=== PATIENT | male | born 1965 | race Caucasian/White ===

== ENCOUNTER 2025-03-12 15:43 | Emergency (ER) | payer MEDICARE, SELFPAY ==
[2025-03-12 15:54] VITALS: BP 165/92; PULSE 76; RESP 20; TEMP 37.1; O2SAT 98; BMI 23.3
--- NOTE | 2025-03-12 16:02 | EDNOTE_ITS ---
ED Skin Abcess FB-RME/HPI General Chief complaint: Skin/Abscess/Foreign Body Stated complaint: SKIN PROBLEMS Time Seen by Provider: 03/12/25 15:48 Arrival date/time: 03/12/25 15:43 59-year-old male with history of HIV and methamphetamine abuse presents to the emerged from today for complaints of multiple skin sores different levels of healing patient has had these for quite some time he reports but he has some new ones as well. Patient believes it is from doing work outside patient reports the sores are itchy. Limitations: no limitations Related Data Previous Rx's ?Medication ?Instructions ?Recorded doxycycline hyclate 100 mg capsule 100 mg PO BID 7 day s #14 caps 03/12/25 ibuprofen 800 mg tablet 800 mg PO TID PRN pain #30 t abs 03/12/25 mupirocin 2 % topical ointment 1 applic topical TID 10 days #22 03/12/25 grams Allergies Allergy/AdvReac Type Severity Reaction Status Date / Time No Known Allergies Allergy Verified 03/12/25 15:46 Review of Systems Review of Systems Systems Reviewed: All systems reviewed, normal except as documented Constitutional Constitutional: Reports system reviewed and no additional complaints, except as documented, Denies fever(s) and Denies headache(s) Eyes Eyes: Reports system reviewed and no additional complaints, except as documented and Denies blurry vision ENT Ears, Nose, Mouth, and Throat: Reports system reviewed and no additional complaints, except as documented, Denies headache(s), Denies nasal congestion and Denies nasal discharge Cardiovascular Cardiovascular: Reports system reviewed and no additional complaints, except as documented, Denies chest pain and Denies dyspnea Respiratory Respiratory: Reports system reviewed and no additional complaints, except as documented, Denies chest congestion, Denies cough and Denies dyspnea Gastrointestinal Gastrointestinal: Reports system reviewed and no additional complaints, except as documented and Denies abdominal pain Integumentary/Breasts Skin/Breast: Reports system reviewed and no additional complaints, except as documented, Reports pruritus and Reports rash (Skin sores) Neurologic Neurologic: Reports system reviewed and no additional complaints, except as documented, Reports as per HPI and Denies headache(s) Past Medical History Social History SMOKING STATUS: Current every day smoker ED Exam General Limitations: Present no limitations General appearance: Present alert and in no apparent distress Head Head exam: Present atraumatic Eye Eye exam: Present normal appearance, PERRL and EOMI ENT ENT exam: Present normal exam, normal oropharynx and mucous membranes moist Neck Neck exam: Present normal inspection, full ROM and trachea midline Chest Chest inspection: Present normal inspection and symmetric chest wall rise Respiratory Respiratory exam: Present normal lung sounds bilaterally Cardiovascular Cardiovascular exam: Present regular rate, normal rhythm and normal heart sounds Abdominal Exam Abdominal exam: Present soft and normal bowel sounds Extremities Exam Extremities exam: Present normal inspection and full ROM Back Exam Back exam: Present normal inspection and full ROM Neurological Exam Neurological exam: Present alert, oriented X3 and CN II-XII intact Psychiatric Psychiatric exam: Present normal affect and normal mood Skin Skin exam: Present warm, dry and other (Skin sores) Course Quality Measures none Orders Category Date Time Status Ketorolac Inj [Toradol Inj] Med 03/12/25 16:03 Discontinued 30 mg IM X1 ONE Vital Signs Vital signs: Vital Signs Temperature 98.8 F 03/12/25 15:54 Pulse Rate 76 03/12/25 15:54 Respiratory Rate 20 03/12/25 15:54 Blood Pressure 165/92 H 03/12/25 15:54 Pulse Oximetry (%) 98 03/12/25 15:54 Oxygen Delivery Method Room Air 03/12/25 15:54 O2 saturation 98% on room air within normal limits Skin / Abscess / Foreign Body MDM Narrative MDM Narrative:: 59-year-old male with history of HIV and methamphetamine abuse presents to the emerged from today for complaints of multiple skin sores different levels of healing patient has had these for quite some time he reports but he has some new ones as well. Patient believes it is from doing work outside patient reports the sores are itchy. Patient also reports chronic left shoulder pain worse with movement patient reports no chest pain shortness of breath On exam patient well-appearing patient does not appear ill or toxic no acute distress Patient has multiple skin sores 2 of the skin sores are crusted over and appear to be infected patient will treat with course of antibiotics and pain medication I did explain to the patient that he must go to the combination building inspector for biopsy for further evaluation of his skin sores patient states understanding For emergent concerns patient is instructed return immediately Patient data External records reviewed:: [facility] previous records Clinical information provided by:: patient Social determinants that could affect healthcare access:: none Patient has the following chronic illnesses:: See history How is presenting disease/condition affected by chronic disease/condition?: uneffected by Evaluation data The following diagnostics were reviewed and interpreted by me:: other (specify) Lab and/or radiology exams considered but not ordered:: Considered not indicated Interpretation Summary: N/A Medications / Prescriptions Medications or Prescriptions considered but not ordered:: Given Medication administrations:: Medication Administration History Discontinued Medications Ketorolac Tromethamine (Ketorolac Inj 30 Mg/Ml Vial) 30 mg IM X1 ONE Stop: 03/12/25 16:04 Last Admin: 03/12/25 16:07 Dose: 30 mg Documented By: MF Given Consultations Consultation(s) initiated? (list below): No Diagnosis Skin/Abscess Differential Diagnosis: abscess of skin or subcutaneous tissue, cellulitis, eczema, insect bites and other (Malignancy basal cell carcinoma, skin cancer, skin sores) Most likely diagnosis given after review of the tests above:: Skin sore Admission Indicated Admission indicated?: not indicated Admission Request Was there a request for admission?: No Disposition Plan Disposition Plan: Discharge Discharge Attestation Discharge Attestation: The patient and all family members were given an opportunity to ask questions and understood the discharge instructions. Discharge instructions specifically effects, indications for sooner follow up or return to the emergency department, and the expected course of current diagnosis. Patient condition: Stable Discharge Plan Plan Patient Disposition: HOME (Self Care) Discharge Disposition comment: Stable Prescriptions/Referrals Prescriptions/Med Rec: New doxycycline hyclate 100 mg capsule 100 mg PO BID 7 Days Qty: 14 0RF mupirocin 2 % ointment 1 applic topical TID 10 Days Qty: 22 0RF ibuprofen 800 mg tablet 800 mg PO TID PRN (Reason: pain) Qty: 30 0RF Problem List Clinical Impression: Skin sore, Left shoulder pain Patient/Caregiver Discharge Instructions Education Materials: ED Arthralgia Additional Instructions: Please follow up with your primary care doctor in the next 24-48hrs for any worsening symptoms return here immediately Please have outpatient follow-up with dermatology for the skin sores Print Language: Japanese Stand Alone Forms: Shireen Award Info., Patient Portal Info Letter PA/[employer] Supervising Physician PA/[employer] Supervising Physician: dr calderon
[2025-03-12] MEDS: KETOROLAC INJ 30 MG/ML VIAL IM (16:07)
== END 2025-03-12 16:45 | disposition home or self-care (01) ==
PROVIDERS: Emergency Provider Emergency Medicine
DX: L98.9 Disorder of the skin and subcutaneous tissue, unspecified (principal); M25.512 Pain in left shoulder; F15.10 Other stimulant abuse, uncomplicated
CPT/HCPCS: 96372; 99282; J1885